=== PATIENT | male | born 1950 | race Caucasian/White ===

== ENCOUNTER 2019-04-01 09:14 | Outpatient (CLI) | payer MEDICARE ==
--- NOTE | 2019-04-01 10:40 | ULT ---
ULTRASOUND ABDOMEN COMPLETE: DATE: 04/01/2019 HISTORY: 68-year-old male with epigastric pain. FINDINGS: The gallbladder has normal wall thickness and has no evidence of gallstones or sludge. The hepatic ec hogenicity is normal. The kidneys have normal echogenicity, and there is no hydronephrosis. There is no splenomegaly. There is no abdominal aortic aneurysm. No free fluid is identified. The inferior xiomy a cava is visualized. Pancreas is obscured by shadowing from bowel gas. There is no biliary dilation. Common duct caliber is 5 mm. IMPRESSION: 1. No pathology identified. 2. Pancreas not visualized. jn [] POS: [facility]
== END 2019-04-01 09:15 | disposition home or self-care (01) ==
LOC: BICULT 09:14
PROVIDERS: ATTEND Physician Assistant Medical
DX: R10.13 Epigastric pain (principal)
CPT/HCPCS: 93975

== ENCOUNTER 2019-04-29 11:54 | Outpatient (CLI) | payer MEDICARE, OTHER ==
[~2019-04-29 11:54] MED LIST: Iopamidol-370 76% 500 ML 1 ML ONE
--- NOTE | 2019-04-29 13:30 | CT ---
CT ABDOMEN AND PELVIS WITH IV CONTRAST 04/29/2019 CLINICAL INFORMATION: Intractable abdominal pain, bloating, reflux, duodenitis. COMPARISON: None. Technique: Multiple contiguous axial CT images are obtained through the abdomen and pelvis with IV contrast. Cor onal reformatted images are provided. FINDINGS: Lower Chest: Minimal dependent bibasilar atelectasis. Vessels: Vascular calcifications are seen in the abdominal aorta and involving the iliac arteries. Abdomen: Portal vein:Patent Gallbladder: Within normal limits for CT imaging. Liver: Calcified granulomata are present. Liver otherwise has a normal CT appearance. Spleen: Calcified granulomata are present. Pancreas: within normal limits. Adrenals: within normal limits. Kidneys: within normal limits. Bowel: Small amount retained fecal material seen throughout the colon. Loops of small bowel are maria g l in caliber. Small hiatal hernia is present. Appendix: Not visualized, but no secondary signs to suggest appendicitis are seen. Peritoneum: No ascites or free air; no fluid collection. Mesentery and Retroperitoneum: No enlarged mesenteric or retroperitoneal lymph nodes. Abdominal Wall: within normal limits. Pelvis: Reproductive Organs: Vascular calcifications are seen in the prostate gland. Pelvis within normal limits. Bladder: within normal limits. Bones: Mild left convex curvature lumbar spine with degenerative changes in the thoracic and lumbar s pine. IMPRESSION: 1. No acute findings are seen in the abdomen or pelvis. 2. Small hiatal hernia.
== END 2019-04-29 11:55 | disposition home or self-care (01) ==
LOC: BICCT 11:54
PROVIDERS: ATTEND Internal Medicine Gastroenterology
DX: R14.0 Abdominal distension (gaseous) (principal); R10.9 Unspecified abdominal pain; K29.80 Duodenitis without bleeding; K21.9 Gastro-esophageal reflux disease without esophagitis; K44.9 Diaphragmatic hernia without obstruction or gangrene
CPT/HCPCS: 74177; 82565; Q9967